=== PATIENT | female | born 1980 | race Caucasian/White ===

== ENCOUNTER 2018-06-22 13:52 | Emergency (ER) | payer MEDICAID, OTHER ==
[2018-06-22] MEDS ORDERED: SODIUM CHLORIDE 0.9% 1000ML 1,000 ML IV ONE (14:11)
[2018-06-22 14:12] VITALS: TEMP 97.6
[2018-06-22] MEDS ORDERED: ACETAMINOPHEN 500 MG 500 MG TAB PO ONE (14:12)
[2018-06-22 14:28] VITALS: RESP 17
[2018-06-22 14:28] LABS: BASOPHILS % (AUTO) 1 % (0-3); EOSINOPHILS % (AUTO) 3 % (0-9); HEMATOCRIT 43 % (35-47); HEMOGLOBIN 14.2 gm/dl (12.0-15.5); LYMPHOCYTES % (AUTO) 24.2 % (10-50); MEAN CORPUSCULAR HEMOGLOBIN 28.9 pg (27.0-32.0); MEAN CORPUSCULAR VOLUME 88 fL (81-99); MONOCYTES % (AUTO) 6.6 % (0-12); NEUTROPHILS % (AUTO) 65.6 % (37-80)
[2018-06-22 14:45] LABS: ALBUMIN 3.7 gm/dl (3.4-5.0); ALKALINE PHOSPHATASE 65 IU/L (46-116); ALT 25 IU/L (14-63); AST 12 IU/L (15-37); BILIRUBIN,TOTAL 0.3 mg/dl (0.2-1.0); BLOOD UREA NITROGEN 9 mg/dl (7-18); CALCIUM 9.2 mg/dl (8.5-10.1); CARBON DIOXIDE 22.4 mEq/L (21-32); CHLORIDE 103 mMol/L (98-107); CREATININE 0.79 mg/dl (0.60-1.00); GLUCOSE 87 mg/dl (74-106); POTASSIUM 3.6 mMol/L (3.5-5.1); SODIUM 137 mMol/L (136-145); TOTAL PROTEIN 7.6 gm/dl (6.4-8.2); TROP I < 0.017 ng/ml (0.000-0.056)
[2018-06-22 16:44] VITALS: BP 138/90; PULSE 81; O2SAT 99
== END 2018-06-22 15:58 | disposition home or self-care (01) | DRG 313 ==
LOC: ED 13:52
DX: R07.89 Other chest pain (principal); Z3A.08 8 weeks gestation of pregnancy; M79.661 Pain in right lower leg
CPT/HCPCS: 36415; 80053; 84484; 84703; 85025; 93005; 99284

== ENCOUNTER 2019-02-24 20:05 | Emergency (ER) | payer OTHER, MEDICAID | END 2019-02-24 21:20 | disposition home or self-care (01) | LOC: ED 20:05 ==